=== PATIENT | male | born 1955 | race Caucasian/White ===

== ENCOUNTER 2020-10-14 22:44 | Emergency (ER) | payer SELFPAY ==
[2020-10-15] MEDS ORDERED: MORPHINE SULFATE 2 MG INJ IV ONE ×2 (00:18→01:12)
[2020-10-15] MEDS ORDERED: MORPHINE SULFATE 2 MG INJ ONE ×2 (00:19→01:13)
[2020-10-15 00:37] VITALS: BP 124/69; PULSE 69; O2SAT 97
[2020-10-15] MEDS ORDERED: XYLOCAINE 2% HCL 20 ML MDV IJ ONE (01:00)
--- NOTE | 2020-10-15 01:00 | ERPHSYRPT ---
- History of Present Illness Time Seen by Provider: 10/14/20 23:30 Source: patient Exam Limitations: no limitations Patient Subjective Stated Complaint: pt states "I was walking out of the camper and slipped and caught my hand on the latch of the camper." Triage Nursing Assessment: pt ambulated into the er; pt is axo x4; c/o laceration to rt hand; pt has laceration to rt palm of hand measuring 11 cm x 1 cm; pt is bleeding moderately; adipose tissue present to wound; pt states that he fell down the steps of the camper and hit his hand on the latch of the camp door; pt states 4/10 pain to rt hand; vitals wnl Physician History: Patient is a 65-year-old male presents to our ED with a hand laceration. Patient is here in [facility] from [place]. Patient states that he was walking out of his camper when he slipped and caught his hand on the latch of his door. Injury occurred just prior to arrival. Patient said he bled significantly. No other injuries reported. No BHT or LOC. No neck pain. Cerv ical spine cleared clinically. The fall was mechanical. No associated chest pain numbness tingling or weakness. Patient had no cardiovascular or neurological symptomology prior to fall. Tetanus is not updated. Patient voices no other complaints or concerns at this time. Occurred: just prior to arrival Method of Injury: fell Quality: constant Severity of Pain-Max: moderate Severity of Pain-Current: mild Extremities Pain Location: hand: right Modifying Factors: Improves With: movement Associated Symptoms: none Allergies/Adverse Reactions: No Known Drug Allergies Allergy (Unverified 10/14/20 23:11) Home Medications: lisinopriL [Lisinopril] 20 mg PO DAILY 10/14/20 [History] Hx Tetanus, Diphtheria Vaccination/Date Given: No Hx Influenza Vaccination/Date Given: No Hx Pneumococcal Vaccination/Date Given: No Travel Risk - International Travel Have you traveled outside of the country in past 3 weeks: No - Coronavirus Screening Are you exhibiting any of the following symptoms?: No Close contact with a COVID-19 positive Pt in past 14-21 Days: No - Vaccine Status Have you recieved a Covid-19 vaccination: No - Review of Systems Constitutional: No Symptoms, No Fever, No Chills Eyes: No Symptoms Ears, Nose, & Throat: No Symptoms Respiratory: No Symptoms, No Cough, No Dyspnea Cardiac: No Symptoms, No Chest Pain, No Edema, No Syncope Abdominal/Gastrointestinal: No Symptoms, No Abdominal Pain, No Nausea, No Vomiting, No Diarrhea Genitourinary Symptoms: No Symptoms, No Dysuria Musculoskeletal: No Symptoms, No Back Pain, No Neck Pain Skin: No Symptoms, No Rash Neurological: No Symptoms, No Dizziness, No Focal Weakness, No Sensory Changes Psychological: No Symptoms Endocrine: No Symptoms Hematologic/Lymphatic: No Symptoms Immunological/Allergic: No Symptoms All Other Systems: Reviewed and Negative - Past Medical History Pertinent Past Medical History: Yes Cardiac History: Hypertension - Past Surgical History Past Surgical History: Yes Gastrointestinal: Appendectomy, Cholecystectomy Musculoskeletal: Orthopedic Surgery Other Surgical History: rt leg surgery - Social History Smoking Status: Former smoker Exposure to second hand smoke: No Drug Use: none Patient Lives Alone: No - Nursing Vital Signs Nursing Vital Signs: Initial Vital Signs Temperature 98.3 F 10/14/20 23:13 Pulse Rate 66 10/14/20 23:13 Respiratory Rate 16 10/14/20 23:13 Blood Pressure 129/80 10/14/20 23:13 O2 Sat by Pulse Oximetry 96 10/14/20 23:13 Pain Scale Pain Intensity 4 - Physical Exam General Appearance: no apparent distress, alert Eyes, Ears, Nose, Throat Exam: moist mucous membranes Neck Exam: non-tender, supple, full range of motion Cardiovascular/Respiratory Exam: chest non-tender, normal breath sounds, regular rate/rhythm, no respiratory distress Abdominal Exam: non-tender, soft, no organomegaly, no hernia, No guarding Back Exam: normal inspection, normal range of motion, No vertebral tenderness Shoulder Exam: normal inspection, non-tender, no evidence of injury, normal ROM Elbow/Forearm Exam: normal inspection, non-tender, no evidence of injury, normal ROM Wrist Exam: normal inspection, non-tender, no evidence of injury, normal ROM Hand Exam: laceration (Laceration measures 11 cm x 1 cm. Laceration extends from the wrist down the palm of the hand to the webspace between the first and second digit.) Neuro/Tendon Exam: normal sensation, normal motor functions Mental Status Exam: alert, oriented x 3, cooperative Skin Exam: normal color, warm, dry SpO2 Interpretation: normal SpO2: 97 O2 Delivery: Room Air Procedures - Laceration/Wound Repair Right Volar Hand Time of Procedure: 02:08 Wound Location: Right, hand Wound Length (cm): 11 Wound's Depth, Shape: linear Wound Explored: clean Irrigated: Yes (See RN note for irrigation details.) Anesthesia: local, 1% Lidocaine Volume Anesthetic (ccs): 8 Wound Debrided: No debridement required Wound Repaired With: sutures Suture Size/Type: 5-0, nylon Number of Sutures: 19 Layer Closure?: No Progress: Patient reassessed. Patient neurovascular tact distally post procedure. Wound dressed in a sterile fashion. Bacitracin applied. Bulky dressing applied as well. Involved extremity was placed in a right upper extremity sling. Patient will be sent to orthopedic clinic for further evaluation and treatment. 10/15/20 02:09 - Course Nursing assessment & vital signs reviewed: Yes - Radiology Exams Hand X-ray Interpretation: Interpreted by me (Tears or dislocations. Soft tissue laceration at the thenar eminence.) Ordered Tests: Active Orders 24 hr Category Date Time Status HAND (MINIMUM 3 VIEWS) Stat Exams 10/14/20 23:08 Taken Medication Summary Generic Name Dose Route Start Last Admin Trade Name Freq PRN Reason Stop Dose Admin Ampicillin Sodium/Sulbactam 100 mls @ 300 mls/hr 10/15/20 01:55 Sodium 3 g/ Sodium Chloride IV 10/15/20 02:14 STAT ONE Discontinued Medications Generic Name Dose Route Start Last Admin Trade Name Freq PRN Reason Stop Dose Admin Diphtheria/Tetanus/Acell Pertussis 0.5 ml 10/15/20 01:06 Adacel Vial IM 10/15/20 01:07 .ONCE ONE Lidocaine HCl 5 ml 10/15/20 01:00 Xylocaine 2% Hcl 20 Ml Mdv IJ 10/15/20 01:01 STAT ONE Morphine Sulfate 2 mg 10/15/20 00:18 10/15/20 00:21 Morphine Sulfate 2 Mg Inj IV 10/15/20 00:19 2 mg STAT ONE Administration Morphine Sulfate Confirm 10/15/20 00:19 Morphine Sulfate 2 Mg Inj Administered 10/15/20 00:20 Dose 2 mg .ROUTE .STK-MED ONE Morphine Sulfate 2 mg 10/15/20 01:12 10/15/20 01:15 Morphine Sulfate 2 Mg Inj IV 10/15/20 01:13 2 mg STAT ONE Administration Morphine Sulfate Confirm 10/15/20 01:13 Morphine Sulfate 2 Mg Inj Administered 10/15/20 01:14 Dose 2 mg .ROUTE .STK-MED ONE - Progress Progress: improved Progress Note: X-ray negative for fracture dislocation. Soft tissue laceration was repaired with 19 simple interrupted sutures. Pain well controlled. Patient received a dose of Unasyn in our ED. A prescription for Augmentin was provided to patient. Patient referred to orthopedic surgery to be seen tomorrow. 10/15/20 02:10 Will see patient in: office Counseled pt/family regarding: diagnosis, need for follow-up, rad results - Departure Departure Disposition: Home Clinical Impression: Hand laceration, Fall Condition: Stable Critical Care Time: No Referrals: DOCTOR,NO FAMILY [Primary Care Provider] - Prescriptions: Amox Tr/Potass Clav. 875 mg [Augmentin 875-125 Tablet] 875 mg PO BID 7 Days #14 tablet Outpatient Orders: Ortho Referral Time Frame: 1 Day, Facility: [facility], Location: ORTHO CLINIC
[2020-10-15] MEDS ORDERED: Adacel Vial IM ONE ×2 (01:06→02:01)
[2020-10-15] MEDS ORDERED: Unasyn 3 GM Vial*** 3 G in Sodium Chloride 0.9% 100 ML BAG 100 ML IV ONE (01:55)
[2020-10-15] MEDS ORDERED: Unasyn 3 GM Vial ONE (02:01)
[2020-10-15] MEDS ORDERED: Sodium Chloride 0.9% 100 ML BAG 100 ML ONE (02:01)
[2020-10-15] MEDS ORDERED: XYLOCAINE 2% HCL 20 ML MDV ONE (02:41)
[2020-10-15] MEDS ORDERED: XYLOCAINE 1% HCL 20 ML MDV IJ ONE (02:52)
--- NOTE | 2020-10-15 08:50 | XRAY ---
Indication: Laceration. Comparison: None 3 view right hand demonstrates soft tissue swelling between 1st and 2nd metacarpals. Tiny bone island distal ulna. No other bony, articular, or soft tissue abnormalities.
== END 2020-10-15 02:55 | disposition home or self-care (01) ==
LOC: ED 22:44
DX: S61.411A Laceration without foreign body of right hand, initial encounter (principal); W26.9XXA Contact with unspecified sharp object(s), initial encounter; Z79.899 Other long term (current) drug therapy
CPT/HCPCS: 12004; 73130; 90471; 90715; 96372; 96374; 96376; 99284; J0295; J2270

== ENCOUNTER 2023-09-07 21:07 | Emergency (ER) | payer MEDICARE, OTHER ==
[2023-09-07 21:26] VITALS: BP 113/80; PULSE 74; RESP 16; TEMP 98.3; O2SAT 98
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
== END 2023-09-07 22:04 | disposition home or self-care (01) ==
LOC: ED 21:07
DX: T25.212A Burn of second degree of left ankle, initial encounter (principal); X17.XXXA Contact with hot engines, machinery and tools, initial encounter; E78.5 Hyperlipidemia, unspecified; I10 Essential (primary) hypertension; Z79.899 Other long term (current) drug therapy
CPT/HCPCS: 99281